=== PATIENT | female | born 1990 | race Caucasian/White ===

== ENCOUNTER → 2019-08-09 12:56 | Outpatient (BNVA) | payer MEDICAID, SELFPAY | PROVIDERS: Family Provider Internal Medicine; PCP Internal Medicine; Visit Provider Nurse Practitioner Women's Health | DX: Z01.89 Encounter for other specified special examinations (principal) ==

== ENCOUNTER → 2020-07-31 16:20 | Outpatient (BNVA) | payer MEDICAID, SELFPAY | PROVIDERS: Family Provider Internal Medicine; PCP Internal Medicine; Visit Provider Nurse Practitioner Women's Health | DX: N92.1 Excessive and frequent menstruation with irregular cycle (principal); Z01.419 Encounter for gynecological examination (general) (routine) without abnormal findings | CPT/HCPCS: 84443 ==

== ENCOUNTER → 2020-08-17 10:32 | Outpatient (BNVA) | payer MEDICAID, SELFPAY | PROVIDERS: Family Provider Internal Medicine; PCP Internal Medicine; Visit Provider Obstetrics & Gynecology | DX: N92.1 Excessive and frequent menstruation with irregular cycle (principal) | CPT/HCPCS: 76830 ==

== ENCOUNTER → 2021-08-10 08:23 | Outpatient (BNVA) | payer OTHER, SELFPAY | PROVIDERS: Family Provider Internal Medicine; PCP Internal Medicine; Visit Provider Psychiatry & Neurology Psychiatry | DX: F41.1 Generalized anxiety disorder (principal) | CPT/HCPCS: 99204 ==

== ENCOUNTER → 2021-09-21 10:14 | Outpatient (BNVA) | payer MEDICAID, SELFPAY | PROVIDERS: Family Provider Internal Medicine; PCP Internal Medicine; Visit Provider Psychiatry & Neurology Psychiatry | DX: F41.1 Generalized anxiety disorder (principal) | CPT/HCPCS: 99214 ==

== ENCOUNTER → 2021-12-14 09:58 | Outpatient (BNVA) | payer OTHER, SELFPAY | PROVIDERS: Family Provider Internal Medicine; PCP Internal Medicine; Visit Provider Psychiatry & Neurology Psychiatry | DX: F41.1 Generalized anxiety disorder (principal) | CPT/HCPCS: 99214 ==

== ENCOUNTER → 2022-06-26 16:31 | Outpatient (BNVA) | payer MEDICAID, SELFPAY | PROVIDERS: PCP Internal Medicine; Visit Provider Emergency Medicine | DX: J02.9 Acute pharyngitis, unspecified (principal); Z20.818 Contact with and (suspected) exposure to other bacterial communicable diseases | CPT/HCPCS: 87071; 87880 ==

== ENCOUNTER → 2022-08-18 09:36 | Outpatient (BNVA) | payer MEDICAID, SELFPAY | PROVIDERS: PCP Internal Medicine; Visit Provider Nurse Practitioner Women's Health | DX: Z01.419 Encounter for gynecological examination (general) (routine) without abnormal findings (principal); Z11.3 Encounter for screening for infections with a predominantly sexual mode of transmission; Z30.9 Encounter for contraceptive management, unspecified; Z30.41 Encounter for surveillance of contraceptive pills; N72 Inflammatory disease of cervix uteri | CPT/HCPCS: 86592; 86803; 87340; 87491; 87591; 87624; 87661; 87806 ==

== ENCOUNTER 2023-08-15 18:05 | Observation (INO) | payer MEDICAID, SELFPAY ==
--- NOTE | 2023-08-11 12:30 | P.ANESASSM_ITS ---
Pre-Anesthetic Assessment Height/Weight: Height 1.63 m Operation Date: 08/15/23 09:50 Proposed Procedures p Laparoscopic bilateral salpingectomy 88038,Z30.2(Bilateral) - Haile Treviño MD Social No alcohol and No tobacco Airway Submandibular: within normal limits Mallampati: Class I Pulmonary None reported CV/HEM None reported None reported GI None reported Anesthetic Plan ASA status: 1 Anesthesia: General Risk of > 500 ml blood loss (7ml/kg in children): No Medications/Allergies Home Medications Medication Instructions Recorded Confirmed Last Taken Type norethindrone 1 mg-ethinyl 1 tab PO QDAY #84 tabs 08/18/22 08/11/23 08/10/23 Rx estradiol 20 mcg ()-iron 75 mg (7) tablet (Microgestin FE 07/29 ()) paroxetine HCl 20 mg tablet (Paxil) 30 mg PO DAILY 08/11/23 08/11/23 08/10/23 History Allergies Allergy/AdvReac Type Severity Reaction Status Date / Time sulfamethoxazole Allergy Intermediate ALGY-Hives Verified 08/11/23 11:58 [From Bactrim] trimethoprim [From Bactrim] Allergy Intermediate ALGY-Hives Verified 08/11/23 11:58 PFSH Anesthesia Medical History No pertinent past medical history neghx: htn,dm,thyroid,dvt/pe PCP: Dr. Limon Anxiety Contraceptive management Surgical History H/O wisdom tooth extraction Previous section (05/10/17) Repeat low transverse section. Performed by Dr. Remberto Marcum at [facility] in [place], [place]. Previous section (10/07/12) Performed by Dr. Tamra Tesfaye/Dr. Remberto Marcum at [facility] in [place], [place]. Due to CPD, FTD, meconium fluid.---documented transverse uterine incision. VERTICAL MIDLINE INCISION ON SKIN H/O unilateral oophorectomy (06/29/07) 06/29/2007- Laparotomy with right oophorectomy. DX: ovarian neoplasm. Performed by Dr Remberto Marcum at [facility] in [place], [place]. -----> VERTICAL MIDLINE INFRAUMBILICAL INCISION Family History Father Hypertension Diabetes Family/Other Hypertension MATERNAL AUNT Family/Other Hypertension MATERNAL COUSIN Denies family history of Colon cancer Ovarian cancer Breast cancer Uterine cancer Thyroid disease Stroke Social History Smoking and tobacco/nicotine status: never used tobacco/nicotine Second hand smoke exposure: No Substance/Drug Use: never Data Anesthesia Cardiac Studies: No Data to Display
[2023-08-11 12:55] LABS: Basophils % 0.5 %; Eosinophils # 0.1 10^3/uL (0.0-0.8); Hematocrit 42.2 % (36-47); Lymphocytes # 1.5 10^3/uL (0.8-4.8); Lymphocytes % 18.3 %; Mean Corpuscular HGB Conc 33.4 g/dL (30-55); Mean Corpuscular Hemoglobin 30.1 pg (27-33); Mean Corpuscular Volume 90.2 fl (85-98); Mean Platelet Volume 10.8 fL (7.4-10.4); Monocytes # 0.6 10^3/uL (0.2-0.9); Monocytes % 6.6 %; Neutrophils # 6.15 10^3/uL (1.8-7.7); Neutrophils % 73.4 %; Nucleated Red Blood Cells % 0 %; Platelet Count 288 10^3/cmm (157-399); Red Blood Count 4.68 10^6/uL (3.85-5.65); Red Cell Distribution Width 13.5 % (12.1-15.1); White Blood Count 8.37 10^3/uL (3.29-11.43)
[2023-08-11 13:04] LABS: OR HCG Qualitative Urine Negative (Negative)
[2023-08-11 13:17] LABS: Add Urine Microscopic? YES; Bilirubin Urine Neg (Negative); Blood Urine 2+ (Negative); Glucose Urine UA Norm (Normal); Ketones Urine Negative (Negative); Leukocyte Esterase Urine Negative (Negative); Nitrate Urine Negative (Negative); Protein Urine Neg (Negative); Specific Gravity, Urine 1.015 (1.005-1.030); Urine Appearance Clear (CLEAR); Urine Color Yellow (Yellow); Urobilinogen Urine Norm (Negative); pH Urine 6.5 (5-7)
[2023-08-11 13:18] LABS: Add Urine Culture? No; Bacteria Urine TRACE /hpf; RBC Urine 0-4 /hpf (0-2); Squamous Epithelial Cell Urine RARE /hpf (0-5)
[2023-08-11 13:26] LABS: Alanine Aminotransferase 23 U/L (0-33); Albumin Level 4.4 g/dL (3.5-5.2); Alkaline Phosphatase 70 U/L (35-105); Anion Gap 15.2 (5-19); Aspartate Amino Transferase 22 U/L (0-32); Blood Urea Nitrogen 12 mg/dL (6-20); Calcium 9.5 mg/dL (8.5-10.5); Carbon Dioxide 23 mmol/L (22-29); Chloride 102 mmol/L (98-107); Globulin 2.8 g/dL (1.3-4.6); Glomerular Filtration Rate 97.6 mL/min (90-130); Glucose 83 mg/dL (65-115); Osmolality Calculated 281 mOsm/kg (285-295); Potassium 4.2 mmol/L (3.5-5.1); Sodium 136 mmol/L (136-145); Total Bilirubin 0.5 mg/dL (0.15-1.2); Total Protein 7.2 g/dL (6.6-8.7)
[2023-08-15] VITALS (36 sets, daily range): BP systolic 106–162; BP diastolic 55–91; PULSE 74–149; RESP 15–20; TEMP 36.5–37.1; O2SAT 94–100; BMI 35.6
[2023-08-15] MEDS: scopolamine 1.5 Patch 1 PATCH TRANSDERMA (06:20)
[2023-08-15 06:39] LABS: OR HCG Qualitative Urine Negative (Negative)
[2023-08-15] MEDS: sodium chloride 0.9% 500 ML IV (06:40)
--- NOTE | 2023-08-15 06:46 | P.ANESUD_ITS ---
Pre-Anesthetic Update Pre-Anesthetic Assessment: Date of Surgery/Procedure: 08/15/23 Preop Elizabeth gnosis: desire permanent staerilization Proposed Procedure: Operation Date: 08/15/23 07:00 Proposed Procedures p Laparoscopic bilateral salpingectomy 21602,Z30.2(Bilateral) - Haile Treviño MD Any changes to Pre-Anesthetic Assessment?: No Last Intake: Intake Last Liquid Date 08/14/23 Last Liquid Time 22:00 Last Solid Date 08/14/23 Last Solid Time 21:00 Vitals: Temperature 97.7 F 08/15/23 06:09 Temperature Source Temporal Artery S can 08/15/23 06:09 Pulse Rate 74 08/15/23 06:09 Pulse Rhythm Regular 08/15/23 06:09 Pulse Strength 3+ Normal 08/15/23 06:09 Respiratory Rate 16 08/15/23 06:09 Blood Pressure 128/81 08/15/23 06:09 Blood Pressure Danica n 96 08/15/23 06:09 Pulse Oximetry 98 08/15/23 06:09 Oxygen Delivery Me thod Room Air 08/15/23 06:09 Exam: Pre-Anes Outpt Exam: alert, oriented x 3, clear to auscultation bilaterally and regular rate & rhythm Cardiac Studies: No Data to Display
--- NOTE | 2023-08-15 06:54 | W.PM.OPSUD ---
Surgery/Procedure H&P Update DATE OF PROCEDURE: August 15, 2023 DATE H&P PERFORMED: 08/07/23 H&P UPDATE INFORMATION: I have reviewed H&P completed within last 30 days, I have examined patient prior to procedure and No changes to prior documentation PREOP DIAGNOSIS: desire permanent staerilization PLANNED PROCEDURE: Operation Date: 08/15/23 07:00 Proposed Procedures p Laparoscopic bilateral salpingectomy 94589,Z30.2(Bilateral) - Haile Treviño MD
[2023-08-15] MEDS: ceFAZolin 2,000 MG in sodium chloride 0.9% (plus) 50 ML 100 MG IV (07:01)
[2023-08-15] MEDS: sodium chloride 0.9% 1,000 ML 30 ML IV (07:26)
[2023-08-15] MEDS: BUPivacaine 0.5% INJ 10 mL INJECTION (07:26)
--- NOTE | 2023-08-15 08:22 | P.OP_ITS ---
Operative Report Date of procedure: August 15, 2023 Pre-op diagnosis: Desire permanent sterilization Post-op diagnosis: Same Post-op findings: Pelvic adhesions Left hydrosalpinx Procedure done: Laparoscopic bilateral salpingectomy Lysis of adhesions Specimens removed/disposition: Left right fallopian tube Surgeon: Haile Treviño MD Estimated blood loss (mL): 10 IV fluids (mL): 1,800 Urine output (mL): 50 Complications: None Findings: Good and stable Procedure: After informed consent, the patient was taken to the operating room where general anesthesia was administered. She was placed in the dorsal lithotomy po sition and prepped and draped in sterile fashion. Pre-Procedure Time-Out verifying the correct patient identity, correct procedure verified with consent, correct site and side, correct patient position, availability of correct implants and any special equipment or requirements was performed and acknowledge by the OR team. The patient was examined under anesthesia and found to have a normal uterus with normal adnexa. A weighted speculum was placed in the vagina, and the anterior lip of cervix was grasped with the single toothed tenaculum. A uterine manipulator was advanced into the endocervical canal and uterus. The tenaculum was removed after uterine manipulator was secured. The speculum was removed from the vagina. An intraumbilical incision was made with a scalpel. While tenting up on the abdomen, a Verres needle was admitted into the intra-abdominal cavity. A saline drop test was performed and noted to be within normal limits. Pneumoperitoneum was attained with 4 liters of carbon dioxide. The Verres needle was removed. A 5 mm Opitc view trocar and sleeve were admitted into the abdomen and laparoscopic confirmation of location was achieved. A second incision was made 3 cm above the symphysis pubis, and a 5 mm trocar sleeves were admitted into the abdomen under direct laparoscopic visualization without complication. A thrird 5mm flank port was then placed laterally on left sides taking care to respect anatomical landmarks and vessels without complication. Once the placement of the ports was complete, the actual laparoscopic procedure began. A survey revealed normal abdominal anatomy with the exception of adhesion to the left lower anterior abdominal wall. A 5 mm blunt probe was advanced through the second trocar sleeve, and light manipulation of the left ovary, the right ovary was missing. The uterus showed bladder adhesion anteriorly and normal posteriorly. The left ovary was noted with a follicular cyst. Omental adhesion to the left lower quadrant were lysed with blunt and sharp dissection with scissors. The patient was placed into Trendelenburg position. The fallopian tubes were inspected bilaterally and the fimbriated ends of the fallopian tubes were visualized bilaterally. The left fallopian tube showed a hydrosalpinx. Attention was then directed to the right side. The fallopian tube and mesosalpinx were grasped and the underlying mesosalpinx was cauterized and cut using the Ligasure device. Serial cauterization and cutting was used to separate the fallopian tube from the underlying mesosalpinx until it could be amputated cutting it approxima elvia 2 cm from the cornua. Attention was then turned to the contralateral fallopian tube, which was removed in similar fashion. Both specimens were removed through the trocar and sent to pathology. The instruments were removed. The suprapubic trocar port was removed under direct visualization insuring good hemostasis. bluedigo was given IV. The pelvis was irrigated and suctioned. The carbon dioxide was allowed to escape from the abdomen. The trocars sleeve were withdrawn under visualization with laparoscope in the sleeve to insure hemostasis. The skin incisions were closed with 3-O Monocryl subcuticular stich and Dermabond. The instruments were removed from the vagina, and excellent hemostasis was noted. The patient tolerated the procedure well, and sponge, lap and needle count were correct times two. The patient was taken to the recovery room in good condition.
[2023-08-15] MEDS: HYDROcodone-acetaminophen 5-325 mg Tablet 1 TAB PO ×2 (09:36→20:15)
[2023-08-15] MEDS: labetalol 5 mg/mL SDV 20mL 10 MG IVP ×2 (10:04→11:21)
--- NOTE | 2023-08-15 10:12 | ECG_ITS ---
[facility] Test Date: 2023-08-15 Pat Name: Catracho Christy Department: Room: Gender: Female Caustic Strength Inspector: : 1990 Requested By: Haile Hadley Order Number: [id number] Mikhail MD: Archie Jiang M.D. Measurements Intervals [place] Rate: 101 P: 72 AL: 170 QRS: 62 QRSD: 80 T: 40 QT: 357 QTc: 465 Interpretive Statements SINUS TACHYCARDIA POSSIBLE LEFT ATRIAL ENLARGEMENT [-0.1mV P-WAVE IN V1/V2] POSSIBLE ANTERIOR MYOCARDIAL INFARCTION , OF INDETERMINATE AGE [30 ms Q WAVE IN V3/V4, OR R < 0.2 mV IN V4] MODERATE T-WAVE ABNORMALITY, CONSIDER LATERAL ISCHEMIA [-0.1+ mV T-WAVE IN I/aVL/V5/V6] No previous ECG available for comparison Electronically Signed On 08-15-2023 10:20:44 BURGLAR ALARM INSPECTOR by Archie Jiang M.D. [id number]
--- NOTE | 2023-08-15 10:26 | PC.NURSE ---
Patient arrived from Phase 1 with this nurse, patient with c/o dizziness, around 0930 during discharge, patient vitals obtained, patient pulse was ranging 107-160's each time patient would lean back, this director underwriter sales notified KAITLIN Mcelroy and Anesthesiologist Dr. Dyson who was at bedside, at 0945 pulse was obtained with patient sitting up vital signs 144/87, 98 SP02, HR 116, patient laid flat Vital signs 142/75, 100 SP02, 138 HR, orders to give patient Labetalol 10mg. Notified Dr. Treviño. Per Anesthesiologist Dr. Dyson, patient is okay to d/c home once patient heart rate is under 100.
--- NOTE | 2023-08-15 10:31 | P.PN_ITS ---
Subjective 2 Subjective: developed SVT in phase 2 with HR to 150's unresponsive to valsalva or carotid massage. Vitals/I&O/Wt Last Vital Signs Temp 98.3 F 08/15/23 09:01 Pulse 102 H 08/15/23 09:01 Resp 16 08/15/23 09:01 BP 135/66 08/15/23 09:01 Pulse Ox 100 08/15/23 09:01 O2 Del Method Room Air 08/15/23 09:01 08/14/23 08/15/23 08/15/23 22:59 06:59 14:59 Intake Total 2350 / 2350 Output Total 160 / 160 Balance 2190 / 2190 Weight last 48 hrs Weight 94.347 kg Physical Exam 2 Chest: OTHER: bs equal GI: OTHER: abdomen soft and nontender without signs of possible bleeding Urinary Catheter Management: Hernandez: Cath Placed During This Visit: yes Urinary Catheter Date of Insertion: 08/15/23 Urinary Catheter Time of Insertion: 07:24 Data 08/11/23 12:09 08/11/23 12:09 A&P Assessment and plan (1) SVT (supraventricular tachycardia): Plan Patient given 10 mg labetolol with decrease rate to 98 and stable blood pressure. Patient has recently started drinking energy drinks. No symptomatic chest pain and no evidence of intrabdominal bleeding. Will continue to observe and will determine discharge status at later time. Attestations 2 Medical Necessity Statement*: to be admitted for obs per Dr. Treviño Coding Level of Care Code Acute Code for [facility] Fwd Diagnoses SVT (supraventricular tachycardia) I47.10 Time Spent (min) 5
--- NOTE | 2023-08-15 11:16 | PC.NURSE ---
Patient heart rate continuing to range from 90's-120's after IVP labetalol per Dr. Treviño admit for observation.
--- NOTE | 2023-08-15 11:23 | PM.PACU ---
PACU note Narrative: patient with HR 100-110 after single dose of labetolol 10 mg. Patient to be admitted per Dr. Treviño.
--- NOTE | 2023-08-15 12:31 | PM.CONSULT ---
Providers/Reason For Consult Consulting Physician/Specialty*: Frase/Hospitalist Reason for Consult*: Non-sustained ventricular tachycardia during procedure Requesting Physician: Dr Treviño Attending Physician: Haile Treviño MD Primary Care Provider: Taz Limon DO History of Present Illness History of Present Illness Catracho Christy is a 32 year old female who presented to [facility] on the day of admission for planned bilateral salpingectomy by Dr. Treviño. She did well during surgery with no complications noted. Postoperatively she was doing okay in PACU. She moved from PACU to recovery and was close to going home when she began to have initially sinus tachycardia around 100. She subsequently went into SVT with heart rate into 150s to 160s. I do not have strips demonstrating this but it was noted by nursing staff and anesthesia was called. Anesthesia ordered labetalol. With labetalol heart rate improved to 110s to 120s initially but subsequently went back up into the 140s to 150s. She received a second dose of labetalol. Blood pressures throughout this time actually trended upwards. Decision was made to admit the patient for overnight observation and hospitalist were contacted for management of arrhythmia. In talking with Mrs. Christy, she has had palpitations in the past. In 2018 she had a 24-hour Holter monitor placed. This did not reveal any episodes of SVT or V. tach. She ultimately was diagnosed with anxiety and as her anxiety became better controlled with medications, currently on Paxil, episodes of palpitations decreased but they have still occurred. She will notice some tightness in her chest and sometimes has a sensation of skipping beats. She is indicated to others that she can feel her heartbeat being fast but does not recall that at this moment. She has not had any syncopal episodes. There is 1 family member who had sudden at a young age though details were not known. Patient herself was adopted by her aunt. No known history of coronary artery disease in her parents. Her aunt had COPD and associated heart failure. no personal history of hypertension, thyroid disease. She does drink energy drinks once a day at times but has not had an increase in caffeine intake lately. No recent changes in medications. She is on control pills but after salpingectomy today plans to come off of them. She does not smoke. No drug use. Occasionally drinks alcohol with none recently. Basic labs were checked and were unremarkable showing normal potassium, hemoglobin, creatinine. Twelve-lead EKG showed sinus tachycardia at 101 bpm with some nonspecific changes. She is no longer feeling dizzy but heart rate has remained 100s to 120s. Blood pressure 150s systolic. Review of Systems General: Reports: Other (ROS as per HPI or as noted here) Const: Denies: fever(s) ENMT: Reports: throat pain (Postanesthesia/intubation) and other Card: Reports: palpitations and lightheadedness (Today after surgery); Denies: chest pain, edema, syncope, dyspnea on exertion or orthopnea Resp: Denies: dyspnea, productive cough, non-productive cough, wheezing, pain on inspiration or hemoptysis GI: Denies: abdominal pain or hematochezia : Reports: other (Currently on menstrual cycle); Denies: flank pain or difficulty voiding Musc: Reports: other (Occasionally has pain after exertion in the legs) Psych: Reports: anxiety (Much better controlled on Paxil) Endo: Denies: tired all the time Rafael/Lymph: Denies: easy bruising or easy bleeding Medications/Allergies Home Medications Medication Instructions Recorded Confirmed Last Taken Type norethindrone 1 mg-ethinyl 1 tab PO QDAY #84 tabs 08/18/22 08/11/23 08/10/23 Rx estradiol 20 mcg (21)-iron 75 mg (7) tablet (Microgestin FE 07/29 (28)) paroxetine HCl 20 mg tablet (Paxil) 30 mg PO BEDTIME 08/11/23 08/15/23 08/10/23 History acetaminophen 325 mg capsule 325 mg PO Q4H PRN fever or pain 08/15/23 Unknown Rx #60 caps hydrocodone 5 mg-acetaminophen 325 1 tab PO Q4H PRN pain #10 tabs 08/15/23 Unknown Rx mg tablet ibuprofen 800 mg tablet 800 mg PO TID PRN pain #60 tabs 08/15/23 Unknown Rx Allergies Allergy/AdvReac Type Severity Reaction Status Date / Time sulfamethoxazole Allergy Intermediate ALGY-Hives Verified 08/11/23 11:58 [From Bactrim] trimethoprim [From Bactrim] Allergy Intermediate ALGY-Hives Verified 08/11/23 11:58 Current Medications Generic Name Dose Route Start Last Admin Trade Name Freq PRN Reason Stop Dose Admin Sodium Chloride 1,000 mls @ 30 mls/hr 08/15/23 06:00 08/15/23 08:03 Sodium Chloride 0.9% IV 08/16/23 05:59 Infused .Q24H LIZBET Infusion PFSH Acute PFSH: Medical History (Updated 08/15/23 @ 14:20 by Katerina Waddell MD) 2 para 2 History of Holter monitoring 2018 24 hr mointor: HR 43-125, 6 minutes tachycardia, no SVT or Vtach. Anxiety Surgical History (Updated 08/15/23 @ 13:59 by Katerina Waddell MD) Status post bilateral salpingectomy (08/15/23) with lysis of adhesions, Dr Treviño, developed SVT postoperatively H/O wisdom tooth extraction Previous section (05/10/17) Repeat low transverse section. Performed by Dr. Remberto Marcum at [facility] in [place], [place]. Previous section (10/07/12) Performed by Dr. Tamra Tesfaye/Dr. Remberto Marcum at [facility] in [place], [place]. Due to CPD, FTD, meconium fluid.---documented transverse uterine incision. VERTICAL MIDLINE INCISION ON SKIN H/O unilateral oophorectomy (06/29/07) 06/29/2007- Laparotomy with right oophorectomy. DX: ovarian neoplasm. Performed by Dr Remberto Marcum at [facility] in [place], [place]. -----> VERTICAL MIDLINE INFRAUMBILICAL INCISION Family History Father Hypertension Diabetes Family/Other Hypertension MATERNAL AUNT Family/Other Hypertension MATERNAL COUSIN Denies family history of Colon cancer Ovarian cancer Breast cancer Uterine cancer Thyroid disease Stroke Social History (Updated 08/15/23 @ 14:08 by Katerina Waddell MD) Smoking and tobacco/nicotine status: never used tobacco/nicotine Second hand smoke exposure: No Alcohol intake: current Alcohol intake frequency: holidays/special occasions only Substance/Drug Use: never Dietary Habits: Caffeine: Yes Caffeine intake frequency: coffee (sometimes) and other (energy drinks, one per day) Vitals/I&O/Wt Last Vital Signs Temp 98.3 F 08/15/23 09:01 Pulse 101 H 08/15/23 11:20 Resp 18 08/15/23 11:20 BP 147/81 08/15/23 11:20 Pulse Ox 98 08/15/23 11:20 O2 Del Method Room Air 08/15/23 11:20 08/14/23 08/15/23 08/15/23 22:59 06:59 14:59 Intake Total 2350 / 2350 Output Total 160 / 160 Balance 2190 / 2190 Weight last 48 hrs Weight 94.347 kg Physical Exam Narrative: Patient is awake and alert, able to provide history. Normocephalic. Extraocular movements are intact. Pupils are equally reactive. Oropharynx with dry mucous membranes. Neck is large but supple. Lungs are clear to auscultation bilaterally without any rales rhonchi or wheezes noted. Cardiovascular exam reveals a systolic murmur most prominent at left upper sternal border and supra sternal notch. No jugular venous distention. Abdomen is soft. Hernandez catheter is in place. No calf tenderness or palpable cords. No pitting edema. Speech is clear, face symmetric, no abnormal movements. Urinary Catheter Management: Hernandez: Cath Placed During This Visit: yes Urinary Catheter Date of Insertion: 08/15/23 Urinary Catheter Time of Insertion: 07:24 Data 08/11/23 12:09 08/11/23 12:09 Other Labs: Laboratory Results WBC 8.37 10^3/uL (3.29-11.43) 08/11/23 12:09 RBC 4.68 10^6/uL (3.85-5.65) 08/11/23 12:09 Hgb 14.10 g/dL (11.27-16.99) 08/11/23 12:09 Hct 42.2 % (36-47) 08/11/23 12:09 MCV 90.2 fl (85-98) 08/11/23 12:09 MCH 30.1 pg (27-33) 08/11/23 12:09 MCHC 33.4 g/dL (30-55) 08/11/23 12:09 RDW 13.5 % (12.1-15.1) 08/11/23 12:09 Plt Count 288 10^3/cmm (157-399) 08/11/23 12:09 MPV 10.8 fL (7.4-10.4) H 08/11/23 12:09 Neut % (Auto) 73.4 % 08/11/23 12:09 Lymph % (Auto) 18.3 % 08/11/23 12:09 Republic % (Auto) 6.6 % 08/11/23 12:09 Eos % (Auto) 1.0 % 08/11/23 12:09 Baso % (Auto) 0.5 % 08/11/23 12:09 Neut # (Auto) 6.15 10^3/uL (1.8-7.7) 08/11/23 12:09 Lymph # (Auto) 1.5 10^3/uL (0.8-4.8) 08/11/23 12:09 Republic # (Auto) 0.6 10^3/uL (0.2-0.9) 08/11/23 12:09 Eos # (Auto) 0.1 10^3/uL (0.0-0.8) 08/11/23 12:09 Baso # (Auto) 0.0 10^3/uL (0.0-0.1) 08/11/23 12:09 Nucleated RBC % (auto) 0 % 08/11/23 12:09 Nucleated RBCs # 0.0 /100WBC 08/11/23 12:09 Sodium 136 mmol/L (136-145) 08/11/23 12:09 Potassium 4.2 mmol/L (3.5-5.1) 08/11/23 12:09 Chloride 102 mmol/L (98-107) 08/11/23 12:09 Carbon Dioxide 23 mmol/L (22-29) 08/11/23 12:09 Anion Gap 15.2 (5-19) 08/11/23 12:09 BUN 12 mg/dL (6-20) 08/11/23 12:09 Creatinine 0.7 mg/dL (0.5-0.9) 08/11/23 12:09 GFR Calculation 97.6 mL/min (90-130) 08/11/23 12:09 Glucose 83 mg/dL (65-115) 08/11/23 12:09 Calculated Osmolality 281 mOsm/kg (285-295) L 08/11/23 12:09 Calcium 9.5 mg/dL (8.5-10.5) 08/11/23 12:09 Total Bilirubin 0.5 mg/dL (0.15-1.2) 08/11/23 12:09 AST 22 U/L (0-32) 08/11/23 12:09 ALT 23 U/L (0-33) 08/11/23 12:09 Alkaline Phosphatase 70 U/L (35-105) 08/11/23 12:09 Total Protein 7.2 g/dL (6.6-8.7) 08/11/23 12:09 Albumin 4.4 g/dL (3.5-5.2) 08/11/23 12:09 Globulin 2.8 g/dL (1.3-4.6) 08/11/23 12:09 Urine Color Yellow (Yellow) 08/11/23 12:10 Urine Appearance Clear (CLEAR) 08/11/23 12:10 Urine pH 6.5 (5-7) 08/11/23 12:10 Ur Specific Barre 1.015 (1.005-1.030) 08/11/23 12:10 Urine Protein Neg (Negative) 08/11/23 12:10 Urine Glucose (UA) Norm (Normal) 08/11/23 12:10 Urine Ketones Negative (Negative) 08/11/23 12:10 Urine Blood 2+ (Negative) H 08/11/23 12:10 Urine Nitrate Negative (Negative) 08/11/23 12:10 Urine Bilirubin Neg (Negative) 08/11/23 12:10 Urine Urobilinogen Norm mg/dL (Negative) 08/11/23 12:10 Ur Leukocyte Esterase Negative (Negative) 08/11/23 12:10 Urine RBC 0-4 /hpf (0-2) H 08/11/23 12:10 Urine WBC None /hpf (0-5) 08/11/23 12:10 Ur Squamous Epith Cells Rare /hpf (0-5) 08/11/23 12:10 Amorphous Sediment Not Reportable 08/11/23 12:10 Urine Bacteria Trace /hpf (NONE) 08/11/23 12:10 Urine HCG, Qual Negative (Negative) 08/15/23 06:38 Blood Type O Positive 08/15/23 06:25 Rho(D) Type Rh positive 08/15/23 06:25 Antibody Screen Negative 08/15/23 06:25 A&P Assessment and plan (1) SVT (supraventricular tachycardia): Post-operatively, HR up to 150s-160s, improved with labetolol but not resolved, associated with increase in blood pressure, symptomatic with palpitations and sensation of tightness currently, initially with dizziness. Had complaints of palpitations in past, having had an holter monitor in 2018 x 24 hrs, not demonstrating SVT or Vtach. (2) Status post bilateral salpingectomy: With lysis of adhesions by Dr Treviño, POD#0 (3) Cardiac murmur: Known per patient, details not available, not a concern as she has understood, most prominant in suprasternal notch/left upper sternal border (4) Generalized anxiety disorder: Chronically on Paxil with improved control Plan Observation admission Telemetry monitoring I have ordered an echocardiogram Checking magnesium and TSH Received a dose of metoprolol tartrate in addition to labetalol x 2 doses IV; will monitor response Anticipate arranging event monitor at discharge, to see if we can capture SVT. Per discussion with cardiology, if able to get documented SVT on paper, can be referred for consideration for ablation rather than treated empirically with oral beta-blockade. Order for event monitor placed to initiate arrangement. Will decide about continuation of beta-blockade on an outpatient basis after evaluation of monitoring overnight; continuing beta-blockade now could delay identification of a treatable condition. Alternatively continuing beta-blockade now may help manage symptoms that she has been experiencing and assuming was part of her anxiety. Continue home Paxil which patient normally takes in the evening Postoperative management as per Dr. Treviño Discussed with patient limiting caffeine intake and other stimulants Patient already has an appointment set up with Dr. Limon next week from what she has shared. Discussed with Dr. Smith, on-call physician for Dr. Limon to update on reason for admission and tentative plan at this time. Pending studies at this time include magnesium level, TSH, echocardiogram and arrangement for event monitor Thank you for consultation we will follow while patient is here. Consult Attestations Medical Necessity Statement: Currently requiring overnight monitoring for persistent sinus tachycardia and transient SVT treated with IV beta-seymour blockade. No prior history of documented SVT. Symptomatic during episode. Coding Level of Care Code 75026 Moderate MDM includes number and complexity of problems actively addressed during encounter (new SVT, s/p surgical procedrue, anxiety) and amount and/or complexity of data reviewed/ordered [ previous or external records (holter report in old EMR system), resulted lab(s)/test(s), ordered lab(s)/test(s) (mag, phos, TSH, echo), independent historian ( PACU nursing) and other healthcare professional discussion (anesthesia, Dr Treviño, D/W Dr Smith continuous dryout operator helper for PCP Dr Limon, Dr Barfield RE event monitor)] as documented Diagnoses SVT (supraventricular tachycardia) I47.10 Status post bilateral salpingectomy Z90.79 Cardiac murmur R01.1 Generalized anxiety disorder F41.1
--- NOTE | 2023-08-15 14:02 | USCV_ITS ---
[place], [place] Age: 32 Gender: F : 1990 Exam Date: 08/15/2023 14:15 Ordering Phys: Katerina Waddell MD Technologist: Navi Ferguson [place] [facility] [place]: post [place] afib murmur BP: 126 / 65 HR: 93 Rhythm: tach Technical Quality: Adequate MEASUREMENTS (Male / Female) Normal Values 2D ECHO LV Diastolic Diameter PLAX 4.2 cm 4.2 - 5.9 / 3.9 - 5.3 cm LV Systolic Diameter PLAX 2.3 cm IVS Diastolic Thickness 1.0 cm 0.6 - 1.0 / 0.6 - 0.9 cm IVS Systolic Thickness 1.8 cm LVPW Diastolic Thickness 1.0 cm 0.6 - 1.0 / 0.6 - 0.9 cm LVPW Systolic Thickness 1.3 cm LVOT Diameter 2.0 cm LV Ejection Fraction 2D Teich 77.9 % LV Ejection Fraction MOD 2C 74.8 % LV Ejection Fraction 2C AL 74.5 % LA Diameter 3.2 cm IVC Diameter 1.4 cm M-MODE Aortic Annulus Diameter 2.8 cm LA Ao Ratio MM 1.4 MV E Point Septal Separation 0.5 cm DOPPLER AV Peak Velocity 211.0 cm/s LVOT Peak Velocity 128.0 cm/s AV Area Cont Eq vti 2.0 cm squared AV Area Cont Eq pk 1.9 cm squared MV Area PHT 5.0 cm squared Mitral E to A Ratio 1.1 MV E' Velocity 73.0 cm/s Mitral E to MV E' Ratio 8.8 Mitral E to LV E' Lateral Ratio 8.1 Mitral E to LV E' Septal Ratio 9.6 TR Peak Velocity 286.0 cm/s TR Peak Gradient 32.7 mmHg Right Atrial Pressure 3.0 mmHg Pulmonary Artery Systolic Pressu 35.7 mmHg RV Acceleration Time 0.2 s FINDINGS Left Ventricle Normal left ventricular size, systolic function and wall thickness, with no regional wall motion abnormalities. Normal left ventricular wall thickness. Normal diastolic filling pattern. Right Ventricle The right ventricle is normal in size and function. Right Atrium The right atrium is normal in size. Left Atrium The left atrium is normal in size. Mitral Valve Structurally normal mitral valve without significant stenosis or prolapse. There is no mitral regurgitation. Aortic Valve Structurally normal aortic valve without significant sclerosis or stenosis. There is no aortic regurgitation. Tricuspid Valve Structurally normal tricuspid valve without significant stenosis or regurgitation. Pulmonary artery systolic pressure is normal. Pulmonic Valve Structurally normal pulmonic valve without significant stenosis. There is no pulmonic regurgitation. Pericardium Normal pericardium without effusion. Aorta Normal ascending aorta dimension. IVC The inferior vena cava appears normal. CONCLUSIONS Normal transthoracic echocardiogram. There are no prior echocardiogram studies to compare. Dr. Kevin Barfield MD (Electronically Signed) Final Date: 15 August 2023 16:49 S
[2023-08-15] MEDS: metoprolol tartrate 25 mg Tablet PO (14:35)
[2023-08-15 17:14] LABS: Magnesium 1.7 mg/dL (1.7-2.3); Phosphorus 1.8 mg/dL (2.5-4.5); Thyroid Stimulating Hormone 0.75 uIU/mL (0.27-4.20)
[2023-08-15] MEDS: famotidine 20 mg Tablet PO (18:11)
[2023-08-15] MEDS: sodium chlor 0.9% + KCl 20 mEq 20 MEQ/1,000 ML BAG 100 MEQ IV (18:11)
[2023-08-15] MEDS: PARoxetine 20 mg Tablet 30 MG PO (20:15)
[2023-08-16] VITALS: BP 154/70; PULSE 85; RESP 18; TEMP 37; O2SAT 98
[2023-08-16 04:00] VITALS: BP 130/78; PULSE 74; RESP 18; TEMP 36.9; O2SAT 98
[2023-08-16] MEDS: sodium chlor 0.9% + KCl 20 mEq 20 MEQ/1,000 ML BAG 100 MEQ IV (04:14)
[2023-08-16 05:53] VITALS: PULSE 68
[2023-08-16] MEDS: HYDROcodone-acetaminophen 5-325 mg Tablet 1 TAB PO (07:32)
[2023-08-16 08:00] VITALS: BP 131/82; PULSE 74; RESP 16; TEMP 36.8; O2SAT 97
[2023-08-16] MEDS: famotidine 20 mg Tablet PO (08:17)
--- NOTE | 2023-08-16 09:43 | P.PN_ITS ---
Subjective 2 Subjective: No acute events overnight. Hospital course and labs appreciated. [facility] No further events on telemetry. Denies any nausea, vomiting, headache. Vitals/I&O/Wt Last Vital Signs Temp 98.3 F 08/16/23 08:00 Pulse 74 08/16/23 08:00 Resp 16 08/16/23 08:00 BP 131/82 08/16/23 08:00 Pulse Ox 97 08/16/23 08:00 O2 Del Method Room Air 08/15/23 18:30 08/15/23 08/16/23 08/16/23 22:59 06:59 14:59 Intake Total 240 / 2590 1480 / 4070 240 / 240 Output Total 1800 / 1960 Balance 240 / 2430 -320 / 2110 240 / 240 Weight last 48 hrs Weight 91.399 kg Weight 94.347 kg Weight 94.347 kg Physical Exam 2 Narrative: Patient is awake and alert, able to provide history. Normocephalic. Extraocular movements are intact. Pupils are equally reactive. Oropharynx with dry mucous membranes. Neck is large but supple. Lungs are clear to auscultation bilaterally without any rales rhonchi or wheezes noted. Cardiovascular exam reveals a systolic murmur most prominent at left upper sternal border and supra sternal notch. No jugular venous distention. Abdomen is soft. Hernandez catheter is in place. No calf tenderness or palpable cords. No pitting edema. Speech is clear, face symmetric, no abnormal movements. Urinary Catheter Management: Hernandez: Cath Placed During This Visit: yes Reason for Continuing Indwelling Catheter: Required Immobilization for Trauma or Surgery or Anesthesia Urinary Catheter Date of Insertion: 08/15/23 Urinary Catheter Time of Insertion: : Data 08/11/23 12:09 08/11/23 12:09 A&P Assessment and plan (1) SVT (supraventricular tachycardia): Reportedly as per the nurses torpedoman's mate while patient was recovering she had an episode of tachycardia. Concerns for SVT. Improved with labetalol. Cannot see a documented strip though. No further events. (2) Status post bilateral salpingectomy: With lysis of adhesions by Dr Treviño, POD#0 (3) Cardiac murmur: Echocardiogram done shows a normal echo with normal EF, without any valvular abnormality. (4) Generalized anxiety disorder: Chronically on Paxil with improved control Plan Patient is stable to be discharged from medicine standpoint. She should be discharged on an event monitor to further monitor for any arrhythmias. Will hold off on starting beta-seymour for now. Care discussed in detail with Dr. Treviño, patient and family at bedside. Agreeable with treatment plan. Event monitor ordered. Attestations 2 Medical Necessity Statement*: As per primary team. Diagnoses SVT (supraventricular tachycardia) I47.10 Status post bilateral salpingectomy Z90.79 Cardiac murmur R01.1 Generalized anxiety disorder F41.1
--- NOTE | 2023-08-16 10:53 | PM.OBGYDC ---
Discharge Providers HEAD OF MAINTENANCE Date of Admission: 08/15/23 18:05 Date of Discharge: 08/16/23 Attending Provider at Admission: Haile Treviño MD Attending Provider at Discharge: Haile Treviño MD Primary HEAD OF MAINTENANCE: Haile Treviño MD Primary Care Provider: Taz Limon DO Diagnoses at Discharge Discharge Diagnosis (1) SVT (supraventricular tachycardia): Status: Acute Reason for Visit Reason for Visit: sterilization Hospital Course Hospital Course Mrs. Christy 32-year-old female desires permanent sterilization admitted for laparoscopic bilateral salpingectomy. The procedure was performed without complication. When she was Outpatient Surgery ready to be discharged the patient experienced SVT. And was admitted for overnight observation with telemetry. Overnight observation was uneventful. She is tolerating diet well. Ambulating without difficulty. She is afebrile hemodynamically stable postop day 1. She was counseled regarding pelvic rest for 6 weeks (no sex, no tampons, no vaginal douches). Return to the emergency room if any fever, increased bleeding or pain. Patient was advised by hospitalist to follow-up with cardiology. Physical Exam Narrative: GA: Alert and oriented ?3. HEENT: WNL. Heart: Regular rate and rhythm. Lungs: Clear to auscultation bilaterally. Abdomen: Bowel sounds present, nontender, minimal tenderness, incision clean and dry, no redness, pain or edema. INSOLE BEVELER: No bleeding. Extremities: No edema, no cyanosis, no calves pain. Urinary Catheter Management: Hernandez: Cath Placed During This Visit: yes Reason for Continuing Indwelling Catheter: Required Immobilization for Trauma or Surgery or Anesthesia Urinary Catheter Date of Insertion: 08/15/23 Urinary Catheter Time of Insertion: 07:24 History History History 2 Term 2 0 Miscarriages/Ectopic 0 Living Children 2 Discharge Data Studies Completed and Pending Completed Studies During Hospitalization Category Date Time Status CV. echo complete* [id number] Routine Ultrasound 08/15/23 14:02 Completed Pending at discharge Category Date Time Status MCT/Event Monitor 7 Days Routine Exams 08/15/23 14:30 Ordered Pathology: Surgical [PTH] Routine Pth 08/15/23 08:18 Received Laboratory Results WBC 8.37 10^3/uL (3.29-11.43) 08/11/23 12:09 RBC 4.68 10^6/uL (3.85-5.65) 08/11/23 12:09 Hgb 14.10 g/dL (11.27-16.99) 08/11/23 12:09 Hct 42.2 % (36-47) 08/11/23 12:09 MCV 90.2 fl (85-98) 08/11/23 12:09 MCH 30.1 pg (27-33) 08/11/23 12:09 MCHC 33.4 g/dL (30-55) 08/11/23 12:09 RDW 13.5 % (12.1-15.1) 08/11/23 12:09 Plt Count 288 10^3/cmm (157-399) 08/11/23 12:09 MPV 10.8 fL (7.4-10.4) H 08/11/23 12:09 Neut % (Auto) 73.4 % 08/11/23 12:09 Lymph % (Auto) 18.3 % 08/11/23 12:09 [place] % (Auto) 6.6 % 08/11/23 12:09 Eos % (Auto) 1.0 % 08/11/23 12:09 Baso % (Auto) 0.5 % 08/11/23 12:09 Neut # (Auto) 6.15 10^3/uL (1.8-7.7) 08/11/23 12:09 Lymph # (Auto) 1.5 10^3/uL (0.8-4.8) 08/11/23 12:09 [place] # (Auto) 0.6 10^3/uL (0.2-0.9) 08/11/23 12:09 Eos # (Auto) 0.1 10^3/uL (0.0-0.8) 08/11/23 12:09 Baso # (Auto) 0.0 10^3/uL (0.0-0.1) 08/11/23 12:09 Nucleated RBC % (auto) 0 % 08/11/23 12:09 Nucleated RBCs # 0.0 /100WBC 08/11/23 12:09 Sodium 136 mmol/L (136-145) 08/11/23 12:09 Potassium 4.2 mmol/L (3.5-5.1) 08/11/23 12:09 Chloride 102 mmol/L (98-107) 08/11/23 12:09 Carbon Dioxide 23 mmol/L (22-29) 08/11/23 12:09 Anion Gap 15.2 (5-19) 08/11/23 12:09 BUN 12 mg/dL (6-20) 08/11/23 12:09 Creatinine 0.7 mg/dL (0.5-0.9) 08/11/23 12:09 GFR Calculation 97.6 mL/min (90-130) 08/11/23 12:09 Glucose 83 mg/dL (65-115) 08/11/23 12:09 Calculated Osmolality 281 mOsm/kg (285-295) L 08/11/23 12:09 Calcium 9.5 mg/dL (8.5-10.5) 08/11/23 12:09 Phosphorus 1.8 mg/dL (2.5-4.5) L 08/15/23 15:50 Magnesium 1.7 mg/dL (1.7-2.3) 08/15/23 15:50 Total Bilirubin 0.5 mg/dL (0.15-1.2) 08/11/23 12:09 AST 22 U/L (0-32) 08/11/23 12:09 ALT 23 U/L (0-33) 08/11/23 12:09 Alkaline Phosphatase 70 U/L (35-105) 08/11/23 12:09 Total Protein 7.2 g/dL (6.6-8.7) 08/11/23 12:09 Albumin 4.4 g/dL (3.5-5.2) 08/11/23 12:09 Globulin 2.8 g/dL (1.3-4.6) 08/11/23 12:09 TSH 0.75 uIU/mL (0.27-4.20) 08/15/23 15:50 HCG, Qual Cancelled 08/15/23 06:25 Urine Color Yellow (Yellow) 08/11/23 12:10 Urine Appearance Clear (CLEAR) 08/11/23 12:10 Urine pH 6.5 (5-7) 08/11/23 12:10 Ur Specific [place] 1.015 (1.005-1.030) 08/11/23 12:10 Urine Protein Neg (Negative) 08/11/23 12:10 Urine Glucose (UA) Norm (Normal) 08/11/23 12:10 Urine Ketones Negative (Negative) 08/11/23 12:10 Urine Blood 2+ (Negative) H 08/11/23 12:10 Urine Nitrate Negative (Negative) 08/11/23 12:10 Urine Bilirubin Neg (Negative) 08/11/23 12:10 Urine Urobilinogen Norm mg/dL (Negative) 08/11/23 12:10 Ur Leukocyte Esterase Negative (Negative) 08/11/23 12:10 Urine RBC 0-4 /hpf (0-2) H 08/11/23 12:10 Urine WBC None /hpf (0-5) 08/11/23 12:10 Ur Squamous Epith Cells Rare /hpf (0-5) 08/11/23 12:10 Amorphous Sediment Not Reportable 08/11/23 12:10 Urine Bacteria Trace /hpf (NONE) 08/11/23 12:10 Urine HCG, Qual Negative (Negative) 08/15/23 06:38 Blood Type O Positive 08/15/23 06:25 Rho(D) Type Rh positive 08/15/23 06:25 Antibody Screen Negative 08/15/23 06:25 Vitals Last Vital Signs Temp 98.3 F 08/16/23 08:00 Pulse 74 08/16/23 08:00 Resp 16 08/16/23 08:00 BP 131/82 08/16/23 08:00 Pulse Ox 97 08/16/23 08:00 O2 Del Method Room Air 08/15/23 18:30 Results Labs OB ([facility]): Blood Type O Positive 08/15/23 Antibody Screen Negative 08/15/23 Hct 42.2 % (36-47) 08/11/23 Hgb 14.10 g/dL (11.27-16.99) 08/11/23 Rho(D) Type Rh positive 08/15/23 Plt Count 288 10^3/cmm (157-399) 08/11/23 Hep Bs Antigen Non-reactive (Nonreactive) 08/18/22 Hepatitis C Antibody Non-reactive (Nonreactive) 08/18/22 RPR Nonreactive (Nonreactive) 08/18/22 HIV 1&2 Ab & HIV 1 Ag Non-reactive (Non-Reactiv) 08/18/22 TSH 0.75 uIU/mL (0.27-4.20) 08/15/23 Pap Smear Interpret See note 08/18/22 Discharge Plan Discharge Patient Disposition: Home Condition: Stable Prescriptions: New ibuprofen 800 mg tablet 800 mg PO TID PRN (Reason: pain) Qty: 60 0RF hydrocodone-acetaminophen 5-325 mg tablet 1 tab PO Q4H PRN (Reason: pain) Qty: 10 0RF acetaminophen 325 mg capsule 325 mg PO Q4H PRN (Reason: fever or pain) Qty: 60 0RF Continued norethindrone-e.estradiol-iron [Microgestin FE 07/29 (28)] 1 mg-20 mcg (21)/75 mg (7) tablet 1 tab PO QDAY Qty: 84 3RF paroxetine HCl [Paxil] 20 mg tablet 30 mg PO BEDTIME Discharge Orders: Discharge Order (Routine); Ordered 08/16/23 Ordered By: Haile Treviño Other Ambulatory Orders: MCT/Event Monitor 7 Days (Routine) Timeframe: 1 Day Facility: [facility] - Location: Radiology Ordered By: Demar Arthur Referrals: Haile Treviño MD [Physician] - 08/31/23 1:30 pm (post 2 week follow up visit ) Discharge Diet: Usual diet Discharge Activity: Limit activity as instructed Patient Instructions: Female Sterilization, Laparoscopy, Salpingectomy (GEN), Exploratory Laparoscopy (GEN), Post Anesthesia Care Activity Restrictions/Additional Instructions: 1. Please call [facility] clinic on next working day to make your post-operative appointment in 2 weeks. 2. Please stay home until you come back to the clinic on first post-hospatilization check up. 3. Please follow instructions on your medications CAREFULLY. 4. If you have abdominal incision, do not cover it unless dressing is necessary because of drainage. OK to shower, but avoid bath. Leave steri-strips until they fall off. If they are still on one week after surgery, you may remove them. 5. If you had vaginal surgery or vaginal repair, Dr. Treviño may instruct you to take SITZ bath. 6. Yellow, blood tinged odorous vaginal discharge is usually normal after hysterectomy or vaginal surgeries. 7. No SEXUAL INTERCOURSE, tampons, or douches until you are completely released from the post-operative care. 8. Avoid constipation by eating right and maybe using some Metamucil or Milk of Magnesia. 9. All prescription refills are given during the working hours. Please do no wait till it runs out. Call the clinic at [phone] before your medication runs out. The clinic will get in touch with your doctor to prescribe medications if necessary. 10. Please remain within 40 mile radius from our hospital because emergencies do happen now and then during the post-operative period. 11. If you have stairs at home, take one step at a time slowly and minimize the number of trips. It helps to stay in one floor for the next few days. No lifting except what you can lift by one hand until you are released from the post-operative care. 12. Driving is discouraged until you are well healed. It may be 3-4 weeks before you feel strong enough to drive. You should be able to turn and look through the rear window without pain and you should be able to push the brake pedal very hard without pain before you drive. No fast rules, but SAFETY should be your primary concern. DO NOT drive if you are on sedating medications such as narcotics. 13. Call the clinic (during working hours) to make urgent appointment or go to the Emergency room, if any of the following occurs: i. Vaginal bleeding becomes heavy, more than a period. ii. Incision becomes red and sore, or drains pus. iii. Your TEMPERATURE is over 100.4F or you have chill. iv. IV site becomes red and swollen (a little ``knot?? is usually OK) v. Persistent nausea and vomiting vi. Persistent constipation or diarrhea vii. Rash or allergic reaction to medications. Discharge Attestations HEAD OF MAINTENANCE Time Spent in Discharge Care*: greater than 30 min Coding Level of Care Code Acute Code for Chg Fwd Diagnoses SVT (supraventricular tachycardia) I47.10
== END 2023-08-16 12:07 | disposition home or self-care (01) ==
LOC: MEDSURG 18:06
PROVIDERS: Hospitalist; Admitting Provider Obstetrics & Gynecology; PCP Internal Medicine; Visit Provider Obstetrics & Gynecology
PROC: (CPT 58661; principal; 2023-08-15 07:00)
PROC: (CPT 58661; 2023-08-15 07:00)
DX: Z30.2 Encounter for sterilization (principal); N73.6 Female pelvic peritoneal adhesions (postinfective); I47.10 Supraventricular tachycardia, unspecified; Z90.79 Acquired absence of other genital organ(s); R01.1 Cardiac murmur, unspecified; F41.1 Generalized anxiety disorder; I48.91 Unspecified atrial fibrillation
CPT/HCPCS: 58661; 80053; 81001; 81025; 83735; 84100; 84443; 84703; 85025; 86850; 86900; 88302; 93005; 93306; G0378; J0690; J1100; J1885; J2250; J2405; J2704; J2765; J3010; J3480; J3490; J7030; J7040

== ENCOUNTER 2023-09-27 13:02 | Emergency (ER) | payer MEDICAID, SELFPAY ==
--- NOTE | 2023-09-27 13:06 | ECG_ITS ---
[facility] Test Date: 2023-09-27 Pat Name: Catracho Christy Department: Room: Gender: Female Technical Service Rep: : 1990 Requested By: Pedro Middleton Order Number: [id number] Mikhail MD: Archie Jiang M.D. Measurements Intervals [place] Rate: 148 P: 93 AK: 130 QRS: 84 QRSD: 68 T: 66 QT: 324 QTc: 510 Interpretive Statements SINUS TACHYCARDIA POSSIBLE ANTERIOR MYOCARDIAL INFARCTION , PROBABLY OLD [30 ms Q WAVE IN V3/V4, OR R < 0.2 mV IN V4] Compared to ECG 08/15/2023 10:12:54 T-wave abnormality no longer present Possible ischemia no longer present Myocardial infarct finding still present Electronically Signed On 09-27-2023 16:50:04 CDT by Archie Jiang M.D. [email or web address]
[2023-09-27 13:12] VITALS: BP 130/74; PULSE 148; RESP 20; TEMP 36.4; O2SAT 100
--- NOTE | 2023-09-27 13:19 | W.ED.SOB ---
HPI - SOB/Dyspnea General: Chief Complaint: Shortness of Breath/Dyspnea Stated Complaint: sob, dizzy Time Seen by Provider: 09/27/23 13:16 Source: patient Mode of arrival: ambulatory History of Present Illness: HPI Narrative: 32-year-old female who presents emergency room complaining of shortness of breath and dizziness. Patient recently began exercising again she been off for a while due to a tubal ligation surgery. She has done high intensity workouts called up [place] daily today being the third day after she finished today she got lightheaded and dizzy. She felt numbness and tingling in her hands and had rapid breathing with some shortness of breath and nausea and improved by the time she arrived here but heart rate was in the 130s. No chest pain she been nauseous but no vomiting she is feeling somewhat better after arriving here she is mildly anxious as well. No history of any coronary disease DVT or PE MD elicited complaint: shortness of breath Severity: mild Exacerbating factors: nothing Relieving factors: nothing Associated symptoms: Deny abdominal pain, chest congestion, chest pain, cough, diaphoresis, dizziness, extremity pain, fever(s), hemoptysis, lightheadedness, myalgias, nausea, orthopnea, palpitations, paresthesias, polydipsia, polyuria, rash, sense of impending doom, syncope or vomiting Treatment prior to arrival: none Review of Systems Const: Denies: fever(s), chills or diaphoresis Card: Denies: chest pain, palpitations, lightheadedness, syncope or orthopnea Resp: Reports: dyspnea; Denies: hemoptysis or chest congestion GI: Denies: abdominal pain, nausea or vomiting : Denies: dysuria, urinary frequency or urinary urgency Musc: Denies: neck pain, back pain or extremity pain Skin/Breast: Denies: rash Neuro: Denies: dizziness Endo: Denies: polyuria or polydipsia PFSH ED PFSH: Medical History 2 para 2 History of Holter monitoring 2018 24 hr mointor: HR 43-125, 6 minutes tachycardia, no SVT or Vtach. Anxiety Surgical History Status post bilateral salpingectomy (08/15/23) Pelvic adhesions noted to the left lower anterior abdominal wall, anterior bladder adhesions, omental adhesions to the left lower quadrant, left hydrosalpinx, performed by Dr Treviño, developed SVT postoperatively H/O wisdom tooth extraction Previous section (05/10/17) Repeat low transverse section. Performed by Dr. Remberto Marcum at [facility] in [place], [place]. Previous section (10/07/12) Performed by Dr. Tamra Tesfaye/Dr. Remberto Marcum at [facility] in [place], [place]. Due to CPD, FTD, meconium fluid.---documented transverse uterine incision. VERTICAL MIDLINE INCISION ON SKIN H/O unilateral oophorectomy (06/29/07) 06/29/2007- Laparotomy with right oophorectomy. DX: ovarian neoplasm. Performed by Dr Remberto Marcum at [facility] in [place], [place]. -----> VERTICAL MIDLINE INFRAUMBILICAL INCISION Family History Father Hypertension Diabetes Family/Other Hypertension MATERNAL AUNT Family/Other Hypertension MATERNAL COUSIN Denies family history of Colon cancer Ovarian cancer Breast cancer Uterine cancer Thyroid disease Stroke Female Reproductive History: Date of last menstrual period: 08/30/23 Physical Exam Const: GENERAL APPEARANCE: cooperative and comfortable ORIENTATION/CONSCIOUSNESS: Yes awake, Yes oriented to person, Yes oriented to place and Yes oriented to time HENMT: COMMON NORMALS: normocephalic, atraumatic and hearing grossly normal bilaterally HEAD & SCALP: normocephalic and atraumatic Resp: COMMON NORMALS: normal respiratory effort, No retractions, No use of accessory muscles and clear to auscultation bilaterally AUSCULTATION: clear to auscultation bilaterally Cardio: COMMON NORMALS: regular rhythm and No murmurs present (Cardio) RATE: tachycardic RHYTHM: regular rhythm GI: COMMON NORMALS: Soft to palpation and No hepatosplenomegaly present AUSCULTATION: Yes normoactive bowel sounds PALPATION: Yes Soft to palpation, No Tenderness to palpation present (GI), No Guarding due to palpation present (GI) and Yes No hepatosplenomegaly present Extremity: COMMON NORMALS: normal to inspection, capillary refill normal, no clubbing, cyanosis or edema, no calf tenderness and no pedal edema Neuro: SENSORIUM/ORIENTATION: Yes oriented to person, Yes oriented to place and Yes oriented to time Skin: COMMON NORMALS: no rashes or lesions noted GENERAL SKIN EXAM: no rashes or lesions noted Course Vital Signs: Vital signs: Vital Signs Temperature 97.5 F L 09/27/23 13:12 Pulse Rate 98 09/27/23 14:33 Respiratory Rate 16 09/27/23 14:33 Blood Pressure 149/72 09/27/23 14:33 Pulse Oximetry 100 09/27/23 14:33 Oxygen Delivery Me thod Room Air 09/27/23 13:12 MDM - SOB/Dyspnea Medical Decision Making ABG shows respiratory alkalosis from hyperventilation she is improving her symptoms have resolved her breathing is under better control. Reviewed findings with her discharge home with hydroxyzine to use as needed follow-up with her primary care doctor continue her previously prescribed medications return if she has further problems. Medical Records I reviewed the patient's medical records. Lab Data I reviewed the patient's lab results. 09/27/23 13:28 09/27/23 13:28 Labs/Radiology: Laboratory Results WBC 13.76 10^3/uL (3.29-11.43) H 09/27/23 13:28 RBC 4.49 10^6/uL (3.85-5.65) 09/27/23 13:28 Hgb 13.50 g/dL (11.27-16.99) 09/27/23 13:28 Hct 39.0 % (36-47) 09/27/23 13:28 MCV 86.9 fl (85-98) 09/27/23 13:28 MCH 30.1 pg (27-33) 09/27/23 13:28 MCHC 34.6 g/dL (30-55) 09/27/23 13:28 RDW 13.4 % (12.1-15.1) 09/27/23 13:28 Plt Count 352 10^3/cmm (157-399) 09/27/23 13:28 MPV 10.4 fL (7.4-10.4) 09/27/23 13:28 Neut % (Auto) 63.5 % 09/27/23 13:28 Lymph % (Auto) 25.0 % 09/27/23 13:28 [place] % (Auto) 10.2 % 09/27/23 13:28 Eos % (Auto) 0.4 % 09/27/23 13:28 Baso % (Auto) 0.4 % 09/27/23 13:28 Neut # (Auto) 8.72 10^3/uL (1.8-7.7) H 09/27/23 13:28 Lymph # (Auto) 3.4 10^3/uL (0.8-4.8) 09/27/23 13:28 [place] # (Auto) 1.4 10^3/uL (0.2-0.9) H 09/27/23 13:28 Eos # (Auto) 0.1 10^3/uL (0.0-0.8) 09/27/23 13:28 Baso # (Auto) 0.1 10^3/uL (0.0-0.1) 09/27/23 13:28 Nucleated RBC % (auto) 0 % 09/27/23 13:28 Nucleated RBCs # 0.0 /100WBC 09/27/23 13:28 Specimen Type Arterial 09/27/23 13:33 Sample Site Radial, left 09/27/23 13:33 ABG pH 7.55 (7.35-7.45) H 09/27/23 13:33 ABG pCO2 18.2 mmHg (35-45) L* 09/27/23 13:33 ABG pO2 134.0 mmHg (80.0-100.0) H 09/27/23 13:33 ABG PO2/FiO2 Ratio 0 09/27/23 13:33 ABG HCO3 15.9 mmol/L (22-26) L 09/27/23 13:33 ABG O2 Saturation 98.5 09/27/23 13:33 ABG Base Excess -3.8 mmol/L (-2.0-2.0) L 09/27/23 13:33 Tyron Test Pos 09/27/23 13:33 A-a O2 Gradient Not Reportable 09/27/23 13:33 Hematocrit 41.5 % (37-47) 09/27/23 13:33 Hgb O2 Saturation 97.8 % (95-100) 09/27/23 13:33 Carboxyhemoglobin 0.2 %THgb (0.4-20.1) L 09/27/23 13:33 Methemoglobin 0.5 % (0.4-1.5) 09/27/23 13:33 Total Hemoglobin 13.5 g/dL (12-16) 09/27/23 13:33 Sodium 136.0 mmol/L (131-143) 09/27/23 13:33 Potassium 3.2 mmol/L (3.5-5.0) L 09/27/23 13:33 Glucose 142.0 mg/dL (70-115) H 09/27/23 13:33 Ionized Calcium 1.2 mmol/L (1.1-1.4) 09/27/23 13:33 O2 Delivery Device Room air 09/27/23 13:33 FiO2 21.0 % 09/27/23 13:33 [employer] Teacher ID Cak 09/27/23 13:33 Sodium 135 mmol/L (136-145) L 09/27/23 13:28 Potassium 3.4 mmol/L (3.5-5.1) L 09/27/23 13:28 Chloride 101 mmol/L (98-107) 09/27/23 13:28 Carbon Dioxide 14 mmol/L (22-29) L 09/27/23 13:28 Anion Gap 23.4 (5-19) H 09/27/23 13:28 BUN 16 mg/dL (6-20) 09/27/23 13:28 Creatinine 0.8 mg/dL (0.5-0.9) 09/27/23 13:28 GFR Calculation 83.7 mL/min (90-130) L 09/27/23 13:28 Glucose 144 mg/dL (65-115) H 09/27/23 13:28 Calculated Osmolality 284 mOsm/kg (285-295) L 09/27/23 13:28 Calcium 9.5 mg/dL (8.5-10.5) 09/27/23 13:28 Total Bilirubin 0.7 mg/dL (0.15-1.2) 09/27/23 13:28 AST 31 U/L (0-32) 09/27/23 13:28 ALT 55 U/L (0-33) H 09/27/23 13:28 Alkaline Phosphatase 87 U/L (35-105) 09/27/23 13:28 Troponin T Baseline 7 ng/L (0-10) 09/27/23 13:28 Total Protein 7.0 g/dL (6.6-8.7) 09/27/23 13:28 Albumin 4.6 g/dL (3.5-5.2) 09/27/23 13:28 Globulin 2.4 g/dL (1.3-4.6) 09/27/23 13:28 Urine Color Yellow (Yellow) 09/27/23 14:03 Urine Appearance Sl hazy (CLEAR) A 09/27/23 14:03 Urine pH 5 (5-7) 09/27/23 14:03 Ur Specific [place] 1.025 (1.005-1.030) 09/27/23 14:03 Urine Protein Trace (Negative) 09/27/23 14:03 Urine Glucose (UA) Norm (Normal) 09/27/23 14:03 Urine Ketones 2+ (Negative) H 09/27/23 14:03 Urine Blood 2+ (Negative) H 09/27/23 14:03 Urine Nitrate Negative (Negative) 09/27/23 14:03 Urine Bilirubin Neg (Negative) 09/27/23 14:03 Urine Urobilinogen Norm mg/dL (Negative) 09/27/23 14:03 Ur Leukocyte Esterase Negative (Negative) 09/27/23 14:03 Urine RBC 0-4 /hpf (0-2) H 09/27/23 14:03 Urine WBC 0-4 /hpf (0-5) H 09/27/23 14:03 Ur Squamous Epith Cells 0-4 /hpf (0-5) H 09/27/23 14:03 Amorphous Sediment Not Reportable 09/27/23 14:03 Urine Bacteria Trace /hpf (NONE) 09/27/23 14:03 No radiology studies performed this visit Discharge Plan Discharge Patient Disposition: Home Clinical Impression: Anxiety, Hyperventilation Condition: Stable Prescriptions: New hydroxyzine HCl 25 mg tablet 25 mg PO Q6H PRN (Reason: anxiety) Qty: 10 0RF No Action mupirocin 2 % ointment 1 applic topical BID 5 Days Qty: 15 0RF paroxetine HCl [Paxil] 20 mg tablet 20 mg PO BEDTIME Multi-Vitamin Tablet 1 tab PO QAM Denta 5000 Plus 1.1 % cream 1 applic dental BEDTIME Discharge Orders: Discharge ED (Routine); Ordered 09/27/23 Ordered By: Pedro Liu Referrals: Taz Limon, [Primary Care Provider] - Discharge Diet: Usual diet Discharge Activity: Increase activity as tolerated Patient Instructions: Hyperventilation (ED), Anxiety (ED), Opioid Safety, Pain Management Activity Restrictions/Additional Instructions: Thank you for choosing [facility] for your healthcare needs today. Please realize this is an emergency room and that we are providing you with a medical screening exam and this may not be complete and all inclusive of all the testing and or work up that you may need to determine your ailment or severity of your illness. It is very important that you follow up as instructed or that you return to the Emergency Department should you have concerns or if your condition changes or worsens in any way. Coding Level of Care Code ED Panel Monitor for Jeannette Grigsby
[2023-09-27 13:28] VITALS: BP 149/72; PULSE 109; RESP 19; O2SAT 100
[2023-09-27 13:34] LABS: Basophils # 0.1 10^3/uL (0.0-0.1); Basophils % 0.4 %; Eosinophils # 0.1 10^3/uL (0.0-0.8); Eosinophils % 0.4 %; Lymphocytes # 3.4 10^3/uL (0.8-4.8); Mean Corpuscular HGB Conc 34.6 g/dL (30-55); Mean Corpuscular Hemoglobin 30.1 pg (27-33); Mean Corpuscular Volume 86.9 fl (85-98); Mean Platelet Volume 10.4 fL (7.4-10.4); Monocytes # 1.4 10^3/uL (0.2-0.9); Monocytes % 10.2 %; Neutrophils # 8.72 10^3/uL (1.8-7.7); Neutrophils % 63.5 %; Nucleated Red Blood Cells % 0 %; Platelet Count 352 10^3/cmm (157-399); Red Blood Count 4.49 10^6/uL (3.85-5.65); Red Cell Distribution Width 13.4 % (12.1-15.1); White Blood Count 13.76 10^3/uL (3.29-11.43)
[2023-09-27] MEDS: sodium chloride 0.9% 1,000 ML 999 ML IV (13:36)
[2023-09-27 13:54] LABS: ABG PH Result 7.55 (7.35-7.45); Arterial Blood Gas Hematocrit 41.5 % (37-47); Base Excess ABG -3.8 mmol/L (-2.0-2.0); Blood Gas Allen Test Pos; Blood Gas Operator Identificat CAK; Blood Gas Sample Site Radial, left; Blood Gas Sample Type Arterial; Carboxyhemoglobin 0.2 %THgb (0.4-20.1); HCO3 ABG 15.9 mmol/L (22-26); HGB O2 Sat 97.8 % (95-100); Ionized Calcium Level - ABG 1.2 mmol/L (1.1-1.4); Methemoglobin 0.5 % (0.4-1.5); Oxygen Device ROOM AIR; Oxygen Saturation ABG 98.5; PO2 FiO2 Ratio Arterial Blood 0; Potassium Level - ABG 3.2 mmol/L (3.5-5.0); Total Hemoglobin 13.5 g/dL (12-16)
[2023-09-27 13:55] LABS: ABG PCO2 18.2 mmHg (35-45)
--- NOTE | 2023-09-27 14:05 | PC.NURSE ---
Discharge Delay: d/t waiting on normal saline infusion to complete
[2023-09-27 14:09] LABS: Alanine Aminotransferase 55 U/L (0-33); Albumin Level 4.6 g/dL (3.5-5.2); Alkaline Phosphatase 87 U/L (35-105); Anion Gap 23.4 (5-19); Aspartate Amino Transferase 31 U/L (0-32); Blood Urea Nitrogen 16 mg/dL (6-20); Calcium 9.5 mg/dL (8.5-10.5); Carbon Dioxide 14 mmol/L (22-29); Chloride 101 mmol/L (98-107); Creatinine Clr Calc Pharmacy 113.2029; Globulin 2.4 g/dL (1.3-4.6); Glomerular Filtration Rate 83.7 mL/min (90-130); Glucose 144 mg/dL (65-115); Osmolality Calculated 284 mOsm/kg (285-295); Potassium 3.4 mmol/L (3.5-5.1); Sodium 135 mmol/L (136-145); Total Bilirubin 0.7 mg/dL (0.15-1.2)
[2023-09-27 14:12] LABS: Troponin(5th) Baseline 7 ng/L (0-10)
[2023-09-27 14:25] LABS: Add Urine Microscopic? YES; Bilirubin Urine Neg (Negative); Blood Urine 2+ (Negative); Glucose Urine UA Norm (Normal); Ketones Urine 2+ (Negative); Leukocyte Esterase Urine Negative (Negative); Nitrate Urine Negative (Negative); Protein Urine Trace (Negative); RBC Urine 0-4 /hpf (0-2); Specific Gravity, Urine 1.025 (1.005-1.030); Squamous Epithelial Cell Urine 0-4 /hpf (0-5); Urine Appearance SL Hazy (CLEAR); Urine Color Yellow (Yellow); Urobilinogen Urine Norm (Negative); WBC Urine 0-4 /hpf (0-5); pH Urine 5 (5-7)
[2023-09-27 14:26] LABS: Add Urine Culture? No; Bacteria Urine TRACE /hpf
[2023-09-27 14:33] VITALS: BP 149/72; PULSE 98; RESP 16; O2SAT 100
== END 2023-09-27 14:34 | disposition home or self-care (01) ==
PROVIDERS: Emergency Provider Family Medicine; PCP Internal Medicine
DX: F41.9 Anxiety disorder, unspecified (principal); R06.4 Hyperventilation
CPT/HCPCS: 36600; 80051; 80053; 81001; 82330; 82805; 84484; 85025; 93005; 96360; 99284; J7030

== ENCOUNTER → 2024-01-08 15:28 | Outpatient (BNVA) | payer MEDICAID, SELFPAY | PROVIDERS: PCP Internal Medicine; Visit Provider Nurse Practitioner Women's Health | DX: Z11.3 Encounter for screening for infections with a predominantly sexual mode of transmission (principal); Z12.4 Encounter for screening for malignant neoplasm of cervix; Z01.419 Encounter for gynecological examination (general) (routine) without abnormal findings; N72 Inflammatory disease of cervix uteri | CPT/HCPCS: 87491; 87591; 87624 ==